=== PATIENT | female | born 1940 | race Caucasian/White ===

== ENCOUNTER 2019-12-01 21:27 | Inpatient (IN) | payer MEDICARE, OTHER ==
[2019-12-01] MEDS ORDERED: Sodium Chloride 0.9% 10 ML Syringe FLUSH PRN (21:34)
[2019-12-01] MEDS ORDERED: Labetalol 20 MG/4 ML Syringe IVPUSH ONE (22:06)
[2019-12-01] MEDS ORDERED: Sodium Chloride 0.9% 1,000 ML IV SCH ×2 (22:15→23:30)
[2019-12-01] MEDS ORDERED: hydrALAZINE 20 MG/ML SDV IVPUSH STA (22:36)
[2019-12-01] MEDS ORDERED: Ondansetron 4 MG/2 ML SDV IV PRN (23:02)
--- NOTE | 2019-12-01 23:31 | EDM.PDOC ---
ED HPI GENERAL MEDICAL PROBLEM - General Stated Complaint: weakness/fall Time Seen by Provider: 12/01/19 21:45 Source of Information: Reports: Patient History Limitations: Reports: No Limitations - History of Present Illness INITIAL COMMENTS - FREE TEXT/NARRATIVE: Patient presented to the ED because of poor oral intake,weakness and falls. She called the [facility] Nurse that she have not urinated for several days and told her to be evaluated in the clinic. They did a bladder scan in the clinic with a postvoid urine of 50 ml and labs did show that she has a creatinine of more than 10. According to the son her mom lives in the assisted living and have poor oral intake for the past 3 weeks. Yesterday she fell but didn't sustain any injury She denies any N/V/D or abdominal pain. No recent cough and cold symptoms, fever or chills. - Related Data Allergies Allergy/AdvReac Type Severity Reaction Status Date / Time naproxen [From Aleve] Allergy Mild Rash Verified 12/01/19 21:46 ED ROS GENERAL - Review of Systems Review Of Systems: See Below Constitutional: Reports: Weakness HEENT: Reports: No Symptoms Respiratory: Reports: No Symptoms Cardiovascular: Reports: No Symptoms Endocrine: Reports: No Symptoms GI/Abdominal: Reports: No Symptoms : Reports: No Symptoms Musculoskeletal: Reports: No Symptoms Skin: Reports: No Symptoms Neurological: Reports: No Symptoms ED EXAM, GENERAL - Physical Exam Exam: See Below Exam Limited By: No Limitations General Appearance: Alert, No Apparent Distress, Anxious, Other (demented) Eye Exam: Bilateral Eye: PERRL Nose: Normal Inspection, Normal Mucosa Throat/Mouth: Normal Inspection, Normal Lips, Normal Teeth Head: Atraumatic, Normocephalic Neck: Normal Inspection, Supple, Non-Tender, Full Range of Motion Respiratory/Chest: No Respiratory Distress, Lungs Clear, Normal Breath Sounds Cardiovascular: Normal Peripheral Pulses, Regular Rate, Rhythm, No Edema, No Gallop, No JVD, No Murmur GI/Abdominal: Normal Bowel Sounds, Soft, Non-Tender, No Organomegaly (Female) Exam: Normal External Exam, Normal Speculum Exam, Normal Bimanual Exam Back Exam: Normal Inspection, Full Range of Motion Extremities: Normal Inspection, Normal Range of Motion, Non-Tender Neurological: Alert, Other (demented) Psychiatric: Anxious Course - Vital Signs Text/Narrative:: Labs/EKG/CXR was discussed with patient and her son EKG-NSR CXR-neg NS 1 L bolus Zofran 4 mg IV x1 Ativan 0.5 mg IV x1 Last Recorded V/S: Last Vital Signs Temp 36.8 C 12/01/19 21:40 Pulse 94 12/01/19 21:40 Resp BP 187/86 H 12/01/19 21:40 Pulse Ox - Orders/Labs/Meds Orders: Active Orders 24 hr Category Date Time Status Patient Status [ADT] Routine ADT 12/01/19 23:02 Active EKG Documentation Completion [RC] ASDIRECTED Care 12/01/19 22:05 Active Oxygen Therapy [RC] PRN Care 12/01/19 23:02 Active Up With Assistance [RC] ASDIRECTED Care 12/01/19 23:02 Active VTE/DVT Education [RC] Per Unit Routine Care 12/01/19 23:02 Active Vital Signs [RC] Q4H Care 12/01/19 23:02 Active OT Evaluation and Treatment [CONS] Routine Cons 12/01/19 23:02 Active PT Evaluation and Treatment [CONS] Routine Cons 12/01/19 23:02 Active Regular Diet [DIET] Diet 12/01/19 Breakfast Ordered Chest 1V Frontal [CR] Stat Exams 12/01/19 22:04 Taken BASIC METABOLIC PANEL,BMP [CHEM] AM Lab 12/02/19 05:11 Ordered CBC WITH AUTO DIFF [HEME] AM Lab 12/02/19 05:11 Ordered CORONAVIRUS COVID-19 PCR PHL Stat Lab 12/01/19 23:03 Received UA W/MICROSCOPIC [URIN] AM Lab 12/02/19 05:11 Ordered Ondansetron [Zofran] Med 12/01/19 23:02 Ordered 4 mg IV Q6H PRN Sodium Chloride 0.9% [Normal Saline] 1,000 ml Med 12/01/19 22:15 Active IV ASDIRECTED Sodium Chloride 0.9% [Saline Flush] Med 12/01/19 21:34 Active 10 ml FLUSH ASDIRECTED PRN Antiembolic Hose [OM.PC] Per Unit Routine Oth 12/01/19 23:10 Ordered Saline Lock Insert [OM.PC] Routine Oth 12/01/19 21:34 Ordered Resuscitation Status Routine Resus Stat 12/01/19 23:02 Ordered EKG 12 Lead [EK] Routine Ther 12/01/19 22:04 Ordered Medication Orders Sodium Chloride (Normal Saline) 1,000 mls @ 999 mls/hr IV ASDIRECTED LAURIE Last Admin: 12/01/19 22:53 Dose: 999 mls/hr Sodium Chloride (Normal Saline) 2,000 mls @ 150 mls/hr IV ASDIRECTED LAURIE Ondansetron HCl (Zofran) 4 mg IV Q6H PRN PRN Reason: Nausea/Vomiting Sodium Chloride (Saline Flush) 10 ml FLUSH ASDIRECTED PRN PRN Reason: Keep Vein Open Meds: Medications Generic Name Dose Route Start Last Admin Trade Name Freq PRN Reason Stop Dose Admin Sodium Chloride 1,000 mls @ 999 mls/hr 12/01/19 22:15 12/01/19 22:53 Normal Saline IV 999 mls/hr ASDIRECTED LAURIE Administration Sodium Chloride 2,000 mls @ 150 mls/hr 12/01/19 23:30 Normal Saline IV ASDIRECTED LAURIE Ondansetron HCl 4 mg 12/01/19 23:02 Zofran IV Q6H PRN Nausea/Vomiting Sodium Chloride 10 ml 12/01/19 21:34 Saline Flush FLUSH ASDIRECTED PRN Keep Vein Open Discontinued Medications Generic Name Dose Route Start Last Admin Trade Name Freq PRN Reason Stop Dose Admin Hydralazine HCl 20 mg 12/01/19 22:36 12/01/19 22:50 Apresoline IVPUSH 12/01/19 22:37 20 mg NOW STA Administration Labetalol HCl 20 mg 12/01/19 22:06 12/01/19 22:15 Normodyne IVPUSH 12/01/19 22:07 20 mg ONETIME ONE Administration Protocol Departure - Departure Time of Disposition: 23:20 Disposition: Admitted As Inpatient 64 Condition: Good Clinical Impression: Dehydration, MARCEL (acute kidney injury), Frequent falls - Discharge Information Sepsis Event Note (ED) - Evaluation Sepsis Screening Result: No Definite Risk - Focused Exam Vital Signs: Vital Signs Temp Pulse BP 12/01/19 21:40 36.8 C 94 187/86 H - My Orders Last 24 Hours: My Active Orders 12/01/19 21:34 Sodium Chloride 0.9% [Saline Flush] 10 ml FLUSH ASDIRECTED PRN Saline Lock Insert [OM.PC] Routine 12/01/19 22:04 Chest 1V Frontal [CR] Stat EKG 12 Lead [EK] Routine 12/01/19 22:05 EKG Documentation Completion [RC] ASDIRECTED 12/01/19 22:15 Sodium Chloride 0.9% [Normal Saline] 1,000 ml IV ASDIRECTED 12/01/19 23:02 Patient Status [ADT] Routine Oxygen Therapy [RC] PRN Up With Assistance [RC] ASDIRECTED VTE/DVT Education [RC] Per Unit Routine Vital Signs [RC] Q4H OT Evaluation and Treatment [CONS] Routine PT Evaluation and Treatment [CONS] Routine Ondansetron [Zofran] 4 mg IV Q6H PRN Resuscitation Status Routine 12/01/19 23:03 CORONAVIRUS COVID-19 PCR PHL Stat 12/01/19 23:10 Antiembolic Hose [OM.PC] Per Unit Routine 12/01/19 Breakfast Regular Diet [DIET] 12/02/19 05:11 BASIC METABOLIC PANEL,BMP [CHEM] AM CBC WITH AUTO DIFF [HEME] AM UA W/MICROSCOPIC [URIN] AM - Assessment/Plan Last 24 Hours: My Active Orders 12/01/19 21:34 Sodium Chloride 0.9% [Saline Flush] 10 ml FLUSH ASDIRECTED PRN Saline Lock Insert [OM.PC] Routine 12/01/19 22:04 Chest 1V Frontal [CR] Stat EKG 12 Lead [EK] Routine 12/01/19 22:05 EKG Documentation Completion [RC] ASDIRECTED 12/01/19 22:15 Sodium Chloride 0.9% [Normal Saline] 1,000 ml IV ASDIRECTED 12/01/19 23:02 Patient Status [ADT] Routine Oxygen Therapy [RC] PRN Up With Assistance [RC] ASDIRECTED VTE/DVT Education [RC] Per Unit Routine Vital Signs [RC] Q4H OT Evaluation and Treatment [CONS] Routine PT Evaluation and Treatment [CONS] Routine Ondansetron [Zofran] 4 mg IV Q6H PRN Resuscitation Status Routine 12/01/19 23:03 CORONAVIRUS COVID-19 PCR PHL Stat 12/01/19 23:10 Antiembolic Hose [OM.PC] Per Unit Routine 12/01/19 Breakfast Regular Diet [DIET] 06/17/20 05:11 BASIC METABOLIC PANEL,BMP [CHEM] AM CBC WITH AUTO DIFF [HEME] AM UA W/MICROSCOPIC [URIN] AM
[2019-12-01] MEDS ORDERED: LORazepam 2 MG/ML SDV IVPUSH PRN (23:32)
[2019-12-01] MEDS ORDERED: Sulfamethoxazole/Trimethoprim 800-160 MG Tab PO SCH (23:45)
[2019-12-02] MEDS ORDERED: Pantoprazole 40 MG Tab.CR PO SCH (07:30)
[2019-12-02] MEDS ORDERED: Sodium Chloride 0.9% 1,000 ML IV SCH (07:35)
[2019-12-02] MEDS: Carbidopa/Levodopa 25-100 MG Tab PO SCH ×2 (08:17→11:22)
[2019-12-02] MEDS ORDERED: Polyethylene Glycol 3350 Powder 17 GM Packet PO SCH (09:00)
[2019-12-02] MEDS ORDERED: busPIRone 15 MG Tab PO SCH (09:00)
[2019-12-02] MEDS ORDERED: Sertraline 50 MG Tab PO SCH (09:00)
--- NOTE | 2019-12-02 10:21 | CR ---
INDICATION: Weakness CHEST ONE VIEW: AP portable upright view of the chest was obtained 12/01/2019- no comparison. The heart did not appear grossly enlarged. The aorta is tortuous with calcification in the arch area. Overlying EKG leads are noted. No consolidating pneumonia or effusion was seen. A small nodular appearing density is noted in the lower outer right lung, which may represent a granuloma. The possibility of neoplasia is not able to be excluded however. If old films are available for comparison, they may be helpful. IMPRESSION: 1. No acute process. 2. ASD aorta. 3. Small nodular density lower lateral lung field on the right, most likely a granuloma. If old films are available for comparison, they may be helpful for exclusion of neoplasia. MTDD
[2019-12-02] MEDS ORDERED: cefTRIAXone 1 GM Vial IVPUSH ONE (10:30)
--- NOTE | 2019-12-02 11:47 | CT ---
INDICATION: Acute kidney injury, hematuria. CT ABDOMEN AND PELVIS WITHOUT CONTRAST: Spiral 2.5 mm axial sections were obtained through the abdomen and pelvis with renal calculus protocol-no IV contrast with sagittal and coronal reconstructions. Examination was obtained 12/02/2019-no comparisons. Total exam DLP was 479.05 mGy-cm. Bibasilar pleuroparenchymal changes are noted which may be on the basis of pneumonia and pleuritis and/or fibrosis and are more prominent at the left lower lobe and lingula. The heart did not appear grossly enlarged. Coronary artery calcifications noted. No pericardial effusion was seen. The gallbladder is absent compatible with history of its removal. There is massive pyelocaliectasis and hydronephrosis on the right down to the level of the proximal ureter at which point a definite calculus is not identified. There is a solid mass in that area suggesting a ureteral neoplastic process as a possibility. This should be correlated clinically. There may be a small calcification centrally in that area which could represent a tiny ureteral calculus. Relatively mild pyelocaliectasis and ureterectasis is noted on the left. The left ureter is lost in the upper pelvis area-not adequately delineated. A degree of obstructive uropathy may be present bilaterally, which could be on the basis of neoplasia, but should be correlated clinically. IV contrast examination when possible may be helpful as well as MRI. A Hicks catheter is noted in place in the urinary bladder. The urinary bladder wall appears to be irregularly thickened, etiology indeterminate-infection versus neoplasia. Fat stranding is noted scattered about the abdomen which may represent peritonitis, but should be correlated clinically. Fat stranding is particularly prominent in the epigastric area and the upper and lower portions of the paracolic gutters extending into the pelvis. No gross ascitic fluid was seen however. No definite bowel obstruction was identified. Calcifications are noted in the abdominal aorta. No evidence of aneurysmal dilatation was noted. Calcifications were also noted in the femoral arteries to a mild degree. What appear to be phleboliths are noted in the pelvis. A mild dextroconcave scoliosis of the lower lumbar spine is noted with hypertrophic degenerative changes and disc disease at L3-4, L4-5 and L5-S1. Hypertrophic changes are also noted of vertebral bodies at L2-3. IMPRESSION: 1. Severe hydronephrosis and proximal hydroureter down to the level of what appears to be a possible solid mass involving the right ureter, this could represent a retroperitoneal neoplasm and possibly a ureteral neoplasm, but should be correlated clinically. IV contrast or MRI may be helpful for further evaluation of this area. There is a degree of obstruction suggested also at the left kidney, mid to distal ureter level also. 2. ASD. 3. Degenerative changes, disc disease and scoliosis lumbosacral spine. 4. ASHD. 5. Bibasilar pleuroparenchymal changes, left greater than right, which may represent pneumonia and pleuritis. 6. Post cholecystectomy. 7. Hicks catheter in place with thickening of the urinary bladder wall, etiology indeterminant. MTDD
--- NOTE | 2019-12-02 12:08 | PCM.DCSUM1 ---
Discharge Summary - Hospital Course HPI Initial Comments: Patient presented to the ED because of poor oral intake, weakness and falls. She called the [facility] Nurse that she have not urinated for several days and told her to be evaluated in the walkin clinic. They did a bladder scan in the clinic with a postvoid urine of 50 ml and labs did show that she has a creatinine of more than 10.8. According to the son her mom lives in the assisted living and have poor oral intake for the past 3 weeks. She fell on 11/24 but didn't sustain any injury. She denies any N/V/D or abdominal pain. No recent cough and cold symptoms, fever or chills. She saw Dr Cornelius on 11/23 with normal creatinine 1.3. - Discharge Data Discharge Date: 12/02/19 () Discharge Disposition: DC/Tfer to Acute Hospital 02 Condition: Stable - Referral to Home Health Primary Care Physician: Praveen Cornelius MD - Discharge Diagnosis/Problem(s) (1) MARCEL (acute kidney injury) SNOMED Code(s): 75079967, 85866509 ICD Code: N17.9 - ACUTE KIDNEY FAILURE, UNSPECIFIED Status: Acute Current Visit: Yes Problem Details: Cr 11.5 today, 10.8(11/30), 1.3(11/23) (2) Ureteral mass SNOMED Code(s): 88725222 ICD Code: N28.89 - OTHER SPECIFIED DISORDERS OF KIDNEY AND URETER Status: Acute Current Visit: Yes Problem Details: Midureter causing severe right hydronephrosis. Fat stranding but no ascites. (3) Acute urinary obstruction SNOMED Code(s): 3915717 ICD Code: N13.9 - OBSTRUCTIVE AND REFLUX UROPATHY, UNSPECIFIED Status: Acute Current Visit: Yes (4) Hydronephrosis, right SNOMED Code(s): 13752218 ICD Code: N13.30 - UNSPECIFIED HYDRONEPHROSIS Status: Acute Current Visit: Yes (5) Hydronephrosis, left SNOMED Code(s): 28197652 ICD Code: N13.30 - UNSPECIFIED HYDRONEPHROSIS Status: Acute Current Visit: Yes (6) Dehydration SNOMED Code(s): 15277907 ICD Code: E86.0 - DEHYDRATION Status: Acute Current Visit: Yes (7) Anuria SNOMED Code(s): 3048407 ICD Code: R34 - ANURIA AND OLIGURIA Status: Acute Current Visit: Yes - Patient Summary/Data Consults: Consultations 12/01/19 23:02 OT Evaluation and Treatment [CONS] Routine Please Evaluate and Treat. OT Reason for Consult: weakness/frequent fall This query below is only for informational purposes and is not editable. PT Evaluation and Treatment [CONS] Routine Please Evaluate and Treat. PT Reason for Consult: weakness/frequent falls This query below is only for informational purposes and is not editable. Hospital Course: Edith was admitted overnight for IV fluids. Urine in walk-in clinic showed infection: large blood, positive nitrites, large leukoesterase, given Bactrim DS 1 tab last evening. Received 1 liter of NS overnight and on her second liter this morning. She was straight catheterized in the clinic but no Hicks was placed in the ER. No output recorded overnight. Spoke with her son Chemo this morning when I assumed care of Edith, discussed that her creatinine had worsened overnight with the fluids and discussed options of transferring for h igher level of care, possible dialysis versus comfort measures. Chemo wished to proceed with further workup. Called [facility], spoke with Dr Hubbard, who accepted patient in transfer, would like CT noncontrast Abdomen/pelvis to make sure she did not have an obstruction as she had a normal creatinine of 1.3 on November [address] Cornelius, her PCP. CT noncontrast abdomen/pelvis showed right ureteral mass, mid way causing obstruction with severe right hydronephrosis, mild left hydronephrosis, fat stranding was present, Hicks was in urinary bladder with minimal fluid present, bladder wall was thickened. Also evidence of diarrhea in distal rectum due to air/fluid levels. She did have a large diarrhea stool after she returned from CT. She will go up by ground ambulance and will be direct admitted to 4th floor. Chemo did verify that she is a FULL CODE at this time. COVID test was negative on admission. - Patient Instructions Diet: NPO Other/Special Instructions: Transfer to as direct admission for right ureteral mass with severe hydronephrosis, MARCEL, Cr 11.5, Hicks in place- anuric. - Discharge Plan *PRESCRIPTION DRUG MONITORING PROGRAM REVIEWED*: Not Applicable *COPY OF PRESCRIPTION DRUG MONITORING REPORT IN PATIENT LISA: Not Applicable Home Medications: Home Meds Aspirin 81 mg PO DAILY 12/01/19 [History] Carbidopa/Levodopa [Sinemet 25-100 mg Tablet] 1 tab PO QID 12/01/19 [History] Omeprazole 20 mg PO DAILY 12/01/19 [History] Melatonin 3 mg PO BEDTIME 12/02/19 [History] Mirtazapine 45 mg PO BEDTIME 12/02/19 [History] Sertraline [Zoloft] 50 mg PO DAILY 12/02/19 [History] Sodium Chloride 0.9% [Normal Saline] 100 ml IV ASDIRECTED bag 12/02/19 [Rx] busPIRone [Buspar] 15 mg PO TID 12/02/19 [History] polyethylene glycoL 3350 [MiraLAX] 17 gm PO BID 12/02/19 [History] Patient Handouts: Acute Kidney Injury, Adult, Fall Prevention in Hospitals, Adult, Venous Thromboembolism Prevention, Dehydration, Adult Forms: ED Department Discharge Referrals: Praveen Cornelius MD [Primary Care Provider] - - Discharge Summary/Plan Comment DC Time >30 min.: Yes - General Info Date of Service: 12/02/19 Admission Dx/Problem (Free Text: Edith complaining of right flank pain but otherwise she has no complaints, she did eat some breakfast this morning but felt full. She knows she is in the hospital but thought she was in [facility]. - Patient Data Vitals - Most Recent: Last Vital Signs Temp 98.2 F 12/02/19 03:02 Pulse 88 12/02/19 03:02 Resp 18 12/02/19 03:02 BP 112/57 L 12/02/19 03:02 Pulse Ox 96 12/02/19 03:02 Weight - Most Recent: 143 lb 4.8 oz I&O - Last 24 hours: Intake & Output 12/01/19 12/02/19 12/02/19 22:59 06:59 14:59 Intake Total 100 Balance 100 Lab Results - Last 24 hrs: Laboratory Results - last 24 hr 12/01/19 12/02/19 12/02/19 Range/Units 23:03 06:30 06:30 WBC 7.9 (4.5-12.0) X10-3/uL RBC 3.61 (3.23-5.20) x10(6)uL Hgb 10.0 L (11.5-15.5) g/dL Hct 30.7 (30.0-51.3) % MCV 85.2 (80-96) fL MCH 27.7 (27.7-33.6) pg MCHC 32.5 (32.2-35.4) g/dL RDW 14.1 (11.5-15.5) % Plt Count 227 (125-369) X10(3)uL MPV 7.3 L (7.4-10.4) fL Neut % (Auto) 82.2 H (46-82) % Lymph % (Auto) 9.6 L (13-37) % [place] % (Auto) 6.9 (4-12) % Eos % (Auto) 1 (1.0-5.0) % Baso % (Auto) 0 (0-2) % Neut # (Auto) 6.5 (1.6-8.3) # Lymph # (Auto) 0.8 (0.6-5.0) # [place] # (Auto) 0.5 (0.0-1.3) # Eos # (Auto) 0.1 (0.0-0.8) # Baso # (Auto) 0.0 (0.0-0.2) # Sodium 130 L (135-145) mmol/L Potassium 5.1 (3.5-5.3) mmol/L Chloride 95 L (100-110) mmol/L Carbon Dioxide 23 (21-32) mmol/L BUN 61 H (7-18) mg/dL Creatinine 11.5 H* (0.55-1.02) mg/dL Est Cr Clr Drug Dosing 3.45 mL/min Estimated GFR (MDRD) 3 L (>60) BUN/Creatinine Ratio 5.3 L (9-20) Glucose 97 (80-116) mg/dL Calcium 9.1 (8.6-10.2) mg/dL Creatine Kinase 28 L (60-160) IU/L SARS Virus RNA (PCR) Negative (NEGATIVE) Med Orders - Current: Current Medications Buspirone HCl (Buspar) 15 mg PO TID [facility] Last Admin: 12/02/19 08:19 Dose: 15 mg Documented by: Carbidopa/Levodopa (Sinemet 25-100 Mg) 1 tab PO QIDACANDBED [facility] Last Admin: 12/02/19 11:22 Dose: 1 tab Documented by: Sodium Chloride (Normal Saline) 1,000 mls @ 150 mls/hr IV ASDIRECTED LAURIE Sodium Chloride (Normal Saline) 1,000 mls @ 150 mls/hr IV ASDIRECTED [facility] Last Admin: 12/02/19 11:23 Dose: 150 mls/hr Documented by: Lorazepam (Ativan) 0.5 mg IVPUSH Q8H PRN PRN Reason: Anxiety Last Admin: 12/01/19 23:41 Dose: 0.5 mg Documented by: Melatonin (Melatonin) 3 mg PO BEDTIME LAURIE Mirtazapine (Remeron) 45 mg PO BEDTIME LAURIE Ondansetron HCl (Zofran) 4 mg IV Q6H PRN PRN Reason: Nausea/Vomiting Last Admin: 12/01/19 23:43 Dose: 4 mg Documented by: Pantoprazole Sodium (Protonix) 40 mg PO ACBREAKFAST [facility] Last Admin: 12/02/19 08:17 Dose: 40 mg Documented by: Polyethylene Glycol (Miralax) 17 gm PO BID [facility] Last Admin: 12/02/19 08:19 Dose: 17 gm Documented by: Sertraline HCl (Zoloft) 50 mg PO DAILY [facility] Last Admin: 12/02/19 08:19 Dose: 50 mg Documented by: Sodium Chloride (Saline Flush) 10 ml FLUSH ASDIRECTED PRN PRN Reason: Keep Vein Open Discontinued Medications Ceftriaxone Sodium (Rocephin) 1 gm IVPUSH ONETIME ONE Stop: 12/02/19 10:31 Last Admin: 12/02/19 11:05 Dose: 1 gm Documented by: Hydralazine HCl (Apresoline) 20 mg IVPUSH NOW STA Stop: 12/01/19 22:37 Last Admin: 12/01/19 22:50 Dose: 20 mg Documented by: Sodium Chloride (Normal Saline) 1,000 mls @ 999 mls/hr IV ASDIRECTED [facility] Last Admin: 12/01/19 22:53 Dose: 999 mls/hr Documented by: Labetalol HCl (Normodyne) 20 mg IVPUSH ONETIME ONE; Protocol Stop: 12/01/19 22:07 Last Admin: 12/01/19 22:15 Dose: 20 mg Documented by: Trimethoprim/Sulfamethoxazole (Septra Ds) 1 tab PO DAILY [facility] Last Admin: 12/01/19 23:45 Dose: 1 tab Documented by: Trimethoprim/Sulfamethoxazole (Septra Ds) 1 tab PO DAILY@2100 [facility] Stop: 12/03/19 21:01 - Exam General: Reports: Alert, Oriented (person, hospital), Cooperative, No Acute Distress HEENT: Reports: Pupils Equal, Pupils Reactive, EOMI, Other (Dry & tacky mucosa membranes) Neck: Reports: Supple, Trachea Midline. Denies: Lymphadenopathy Lungs: Reports: Clear to Auscultation, Normal Respiratory Effort Cardiovascular: Reports: Regular Rate, Regular Rhythm GI/Abdominal Exam: Normal Bowel Sounds, Soft, No Distention, Guarding, Tender (RUQ), Mass (Right midflank). No: Rigid, Rebound (Female) Exam: Deferred Rectal (Female) Exam: Deferred Back Exam: Reports: CVA Tenderness (R). Denies: CVA Tenderness (L) Extremities: No Pedal Edema Skin: Reports: Warm, Dry, Intact, Other (abrasion to left cheek) Neurological: Reports: Normal Speech Psy/Mental Status: Reports: Alert
[2019-12-02] MEDS ORDERED: Melatonin 3 MG Tab PO SCH (21:00)
[2019-12-02] MEDS ORDERED: Mirtazapine 15 MG Tab PO SCH (21:00)
[2019-12-02] MEDS ORDERED: Sulfamethoxazole/Trimethoprim 800-160 MG Tab PO SCH (21:00)
== END 2019-12-02 14:10 | DRG 683 ==
LOC: FB.ED 21:27 → FB.MS 23:17
PROVIDERS: ADMIT Emergency Medicine; ATTEND Family Medicine
DX: N17.9 Acute kidney failure, unspecified (principal); I16.9 Hypertensive crisis, unspecified; R29.6 Repeated falls; N13.6 Pyonephrosis; E86.0 Dehydration; Z88.6 Allergy status to analgesic agent; R19.7 Diarrhea, unspecified; Z20.828 Contact with and (suspected) exposure to other viral communicable diseases; Z88.8 Allergy status to other drugs, medicaments and biological substances; Z79.82 Long term (current) use of aspirin; Z79.899 Other long term (current) drug therapy
CPT/HCPCS: 36415; 51702; 71045; 74176; 80048; 82550; 85025; 87086; 93005; 96374; 96375; 97165-GO; 99285-25; A9270-GY; J0360; J0696; J2060; J2405; J3490; J7030; U0002